=== PATIENT | female | born 1955 | race Caucasian/White ===

== ENCOUNTER → 2017-11-15 12:53 | Outpatient (CLI) | payer MEDICAID, SELFPAY ==
--- NOTE | 2017-11-15 11:58 | DI.REPORT_ITS ---
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 There is mild soft tissue swelling seen laterally in the foot. No soft tissue calcification or bony abnormality is seen. There are no significant degenerative changes. IMPRESSION: Heel spur and lateral soft tissue swelling.
== END ==
PROVIDERS: PCP Family Medicine; Visit Provider Nurse Practitioner
DX: M77.32 Calcaneal spur, left foot (principal); R22.42 Localized swelling, mass and lump, left lower limb; D48.7 Neoplasm of uncertain behavior of other specified sites
CPT/HCPCS: 73630

== ENCOUNTER 2018-04-12 11:55 | Day surgery (SDC) | payer MEDICAID, SELFPAY ==
[2018-04-12] MEDS: Lactated Ringers 1,000 ML 75 ML IV (12:56)
[2018-04-12] MEDS: Bupivacaine LIPOSOME/PF 133 MG/10 ML VIAL IJ (14:45)
--- NOTE | 2018-04-12 15:01 | HEM_PTH ---
PATIENT: Lexii Drake LOC: [facility] U#:[id number] AGE/SX: 63/F ROOM: RE04/12/[address]: Chaparro Clancy III : 1955 BED: DIS: 04/12/2018 SPEC #: [id number] RECD: 04/12/18 17:38 STATUS: YUNG REQ #: [id number] ALAINA: 04/12/18 15:[address]: Chaparro Clancy III DEPT: Surgical Specimen RECD BY: Mildred Rivera ENTERED: 04/12/18 17:40 SP TYPE: Hem OTHR DR: Edi Sullivan MD Tissues: 1 - HEMORRHOIDS 2 - HEMORRHOIDS 3 - HEMORRHOIDS 4 - HEMORRHOIDS Procedures: GROSS AND MICRO LEVEL 3 Comments: [id number]
[2018-04-12] MEDS: Cellulose,Oxidized 2X3 PKT 1 EACH MC (15:24)
--- NOTE | 2018-04-12 15:29 | W.PM.OP ---
Date of service: 04/12/18 Time of Service: 15:30 Operative Note DATE OF PROCEDURE: 04/12/18 PRE-OP DIAGNOSIS: thrombosed and external hemorrhoids POST-OP DIAGNOSIS: same PROCEDURE: hemroidectomy ANESTHESIA: local and spinal ESTIMATED BLOOD LOSS: 10 PATHOLOGY: other COMPLICATIONS: None Patient was transported to: PACU Patient's condition: stable Indications: thromboses and external hemorrhoids, severe pain inability to sit or ambulate Findings: 4 large hemorrhoids were found 2, 5, 7, 9 oclock position Procedure Description: the spinal was done, pt positioned in the lithotomy position, timeout done local injected marcain with epi and exparel the largest at the 9 oclock position excised with ligasure when disecting the base clot was encountered consistant with a thrombosed hemorrhoid. the second at the 5 oclock position was removed with a ligasure in a similar fashion. a 2 oclock smaller hemorrhoid was removed with the ligasure. The finasl one at the 9 oclock position was exsised at the base with the ligasure. The largest one in the 9 oclock position had the mucosa approximated with a running chromic stich. Two pieces of surgicel with vasaline gauze was insertes to the rectum with it sticking out as a dressing. pt travis well debreifing done. pt moved to pacu then home after recovery from anesthesia.
[2018-04-12 16:05] VITALS: BP 154/105; PULSE 94; RESP 16; TEMP 36.7; O2SAT 95
== END 2018-04-12 17:31 | disposition home or self-care (01) ==
PROVIDERS: PCP Family Medicine; Visit Provider Surgery
PROC: (CPT 46320; principal; 2018-04-12 14:00)
DX: K64.5 Perianal venous thrombosis (principal); K62.89 Other specified diseases of anus and rectum
CPT/HCPCS: 46320 ×2; 88304; 93005; 93010; J2250

== ENCOUNTER 2019-07-15 10:54 | Outpatient (CLI) | payer MEDICAID, SELFPAY ==
[2019-07-19 04:35] LABS: SARS-CoV-2 RNA Undetected (Undetected); SARS-CoV-2 Specimen Source Nasal
== END 2019-07-15 11:14 ==
PROVIDERS: PCP Family Medicine; Visit Provider Family Medicine
DX: Z20.828 Contact with and (suspected) exposure to other viral communicable diseases (principal)
CPT/HCPCS: 87449; U0003

== ENCOUNTER 2019-09-17 02:49 | Outpatient (CLI) | payer MEDICAID, SELFPAY ==
[2019-09-17 08:42] LABS: Anion Gap 6.4 mmol/L (3-11); BUN 12 mg/dL (7-18); CO2 27.6 mmol/L (21.0-32.0); CREATININE 1.04 mg/dL (0.55-1.02); Calculated LDL 66 mg/dL (<100); Chloride 107 mmol/L (98-107); Cholesterol 154 mg/dL (<200); Estimated GFR 53.35 (mL/min/1.73m2); Glucose 103 mg/dL (74-106); HDL Cholesterol 65 mg/dL (40-60); Potassium 4.6 mmol/L (3.5-5.1); Sodium 141 mmol/L (136-145); Triglyceride 118 mg/dL (<150)
== END 2019-09-17 03:09 ==
PROVIDERS: PCP Nurse Practitioner Family; Visit Provider Family Medicine
DX: I25.10 Atherosclerotic heart disease of native coronary artery without angina pectoris (principal)
CPT/HCPCS: 36415; 80048; 80061

== ENCOUNTER 2020-02-16 10:53 | Outpatient (REF) | payer MEDICAID, SELFPAY ==
--- NOTE | 2020-02-16 10:15 | PAPFT_PTH ---
PATIENT: Lexii Drake LOC: [facility] U#:[id number] AGE/SX: 65/F ROOM: RE02/16/[address]: MAGGIE Holland : 1955 BED: DIS: 02/16/2020 SPEC #: [id number] RECD: 02/16/20 12:47 STATUS: YUNG REQ #: [id number] ALAINA: 02/16/20 10:[address]: Dora Muse DEPT: [facility] Cytology RECD BY: Yue Neil ENTERED: 02/16/20 12:48 SP TYPE: PAPFT OTHR DR: MAGGIE Wagner Tissues: 1 - CX/ENDOCX FOR PAP SMEARS Procedures: PAP THIN PREP/UVM Screening HPV DNA PROBE Comments: [id number] ([facility])
== END 2020-02-16 11:13 ==
LOC: LBN 10:53
PROVIDERS: PCP Nurse Practitioner Family; Visit Provider Nurse Practitioner Family
DX: Z12.4 Encounter for screening for malignant neoplasm of cervix (principal)
CPT/HCPCS: 88142; 87624

== ENCOUNTER 2020-02-24 00:39 | Outpatient (CLI) | payer MEDICAID, SELFPAY ==
--- NOTE | 2020-02-24 10:10 | DI.MAMMO_ITS ---
EXAM: MG MAMMO SCREENING CLINICAL HISTORY: screening TECHNIQUE: Bilateral full field digital CC and MLO mammographic images were obtained with 3D tomosyn thesis and utilizing computer aided detection (CAD). COMPARISON: Available for comparison. FINDINGS: Masses/Architectural Distortion: None seen. There is a stable calcified fibroadenoma in the upper-out er quadrant of the right breast. Microcalcifications: No suspicious pleomorphic-type are seen. Skin Thickening/Nipple Retraction: None. IMPRESSION: 1. No significant interval change with no specific features of malignancy noted. 2. Unless there is more urgent need, screening mammography is recommended, as per [employer] guidelines. BI-RADS Category 2 - Benign Findings Breast Density - Category C - Heterogeneously dense The mammogram demonstrates the patient's breast tissue is dense. Dense breast tissue is very common a nd is not abnormal but dense breast tissue can make it harder to find cancer on a mammogram. Also, de nse breast tissue may increase their breast cancer risk. This information about the result of the [facility] mogram report was provided to the patient to raise their awareness. Use this report when you speak wi th the patient about their risks for breast cancer, which includes their family history. At that time , you may recommend for more screening tests (Ultrasound or MRI) as they might be useful based on the ir risk. A negative radiographic report should not delay biopsy if a dominant or clinically suspicious mass is present. Up to ten percent of cancers are not identified on mammography. A negative report may reinforce clinical impression. Adenosis and dense breasts may obscure an underlying neoplasm. False positive reports average 6 to 10%. Patient will receive a letter notifying them of these results.
== END 2020-02-24 00:59 ==
PROVIDERS: PCP Nurse Practitioner Family; Visit Provider Nurse Practitioner Family
DX: Z12.31 Encounter for screening mammogram for malignant neoplasm of breast (principal); D24.1 Benign neoplasm of right breast
CPT/HCPCS: 77063; 77067

== ENCOUNTER 2020-09-23 01:44 | Outpatient (CLI) | payer MEDICARE, MEDICAID, SELFPAY ==
--- NOTE | 2020-09-23 08:10 | DI.RAD_ITS ---
Exam(s) XR KNEE RT 3V AP,LAT,CLARITZA EXAM: XR KNEE RT 3V AP,LAT,CLARITZA CLINICAL HISTORY: bilateral knee pain,M25.561,M25.562. TECHNIQUE: 2D digital imaging was performed. COMPARISON: No exams were available for comparison FINDINGS: BONES: No acute fracture is present. No bony destructive lesion is seen. JOINTS: The knee is normally aligned. No joint effusion is seen. There is moderate narrowing of the m edial femoral tibial joint space and periarticular spurring. Mild spurring is seen at the patellofem oral joint. SOFT TISSUE: Normal. IMPRESSION: Moderate degenerative changes of the medial femoral tibial joint. DATA REPOSITORY: RADIATION DOSE DELIVERED:
--- NOTE | 2020-09-23 08:10 | DI.RAD_ITS ---
Exam(s) XR KNEE LT 3V AP,LAT,CLARITZA EXAM: XR KNEE LT 3V AP,LAT,CLARITZA CLINICAL HISTORY: bilateral knee pain,M25.561,M25.562. TECHNIQUE: 2D digital imaging was performed. COMPARISON: CR XR KNEE RT 3V AP,LAT,CLARITZA from 09/23/2020 FINDINGS: BONES: No acute fracture is present. No bony destructive lesion is seen. JOINTS: The knee is normally aligned. No joint effusion is seen. There is mild spurring at the media l femoral tibial joint and patellofemoral joint. SOFT TISSUE: Normal. IMPRESSION: Mild degenerative changes. DATA REPOSITORY: RADIATION DOSE DELIVERED:
== END 2020-09-23 02:04 ==
PROVIDERS: PCP Nurse Practitioner Family; Visit Provider Nurse Practitioner Family
DX: M25.561 Pain in right knee (principal); M25.562 Pain in left knee; M25.861 Other specified joint disorders, right knee; M25.862 Other specified joint disorders, left knee
CPT/HCPCS: 73562

== ENCOUNTER 2021-02-10 01:16 | Outpatient (CLI) | payer MEDICARE, MEDICAID, SELFPAY ==
--- NOTE | 2021-02-10 07:30 | DI.CT_ITS ---
Exam(s) CT NECK W EXAM: CT NECK W CLINICAL HISTORY: eval right sided LAT neck mass.R22.1. TECHNIQUE: Imaging Protocol: Axial CT angiography was performed with multi-slice acquisition and mu lti-planar and/or 3D reconstructions. CONTRAST MATERIAL: Intravenous: Omnipaque 350 Contrast volume:100 mL COMPARISON: No exams were available for comparison FINDINGS: Nasopharynx: Unremarkable. No mass. Oropharynx: Unremarkable. Uvula is midline. No mass seen. Hypopharynx: Unremarkable. No mass seen Aryepiglottic folds and region of vocal cords appear unremarkable. The subglottic airway appears unremarkable. Thyroid gland: Not enlarged. No nodules evident. Parotid glands: Unremarkable. Masses nor calculi. Submandibular glands: Unremarkable. No masses. No calculi. Lymph nodes: There are no abnormal enlarged lymph nodes in either side of the neck. Also no supracla vicular adenopathy. Vascular: No evidence of significant atherosclerotic narrowing at the right carotid bifurcation and i nternal carotid artery. On the left side there is mild plaque evident on the posterior wall of the c arotid bifurcations and proximal internal carotid artery but without significant stenosis. Visualized lung apices: Unremarkable Visualized paranasal sinuses: Unremarkable Osseous: Multilevel chronic degenerative disc disease. No significant osseous lesions. IMPRESSION: 1. No evidence of abnormal mass or lymphadenopathy in the neck. RADIATION DOSE DELIVERED: 363.37mGy.cm Total DLP DATA REPOSITORY: All CT scans at this facility are submitted to the National Radiology Data Registry (NRDR) Dose Index Registry (DIR) with the [employer] (A[employer]). RADIATION OPTIMIZATION: All CT scans at this facility use at least one of these dose optimization te chniques: automated exposure control; mA and/or kV adjustment per patient size (includes targeted exa ms where dose is matched to clinical indication); or iterative reconstruction.
[2021-02-10 10:16] LABS: ALT 25 U/L (14-59); AST 17 U/L (15-37); Albumin 3.9 g/dL (3.4-5.0); Alkaline Phosphatase 62 U/L (46-116); Anion Gap 5.3 mmol/L (3-11); BUN 13 mg/dL (7-18); Bilirubin, Total 1.4 mg/dL (0.2-1.0); CO2 28.7 mmol/L (21.0-32.0); CREATININE 0.9 mg/dL (0.55-1.02); Calculated LDL 62 mg/dL (<100); Chloride 106 mmol/L (98-107); Cholesterol 164 mg/dL (<200); Glucose 96 mg/dL (74-106); HDL Cholesterol 84 mg/dL (40-60); Potassium 4.8 mmol/L (3.5-5.1); Sodium 140 mmol/L (136-145); Total Protein 6.9 g/dL (6.4-8.2); Triglyceride 91 mg/dL (<150)
[2021-02-10] MEDS: Omnipaque 350 MG/ML 100 ML BTL IJ (10:31)
[2021-02-10] MEDS: Normal Saline - Diluent 50 ML VIAL IV (10:32)
== END 2021-02-10 01:36 ==
PROVIDERS: PCP Nurse Practitioner Family; Visit Provider Family Medicine
DX: R22.1 Localized swelling, mass and lump, neck
CPT/HCPCS: 70491; 80053; 80061; 83036; J3490

== ENCOUNTER 2021-02-24 01:11 | Outpatient (CLI) | payer MEDICARE, MEDICAID, SELFPAY ==
--- NOTE | 2021-02-24 08:15 | DI.MAMMO_ITS ---
Exam(s) MAMMO SCREENING EXAM: MAMMO SCREENING CLINICAL HISTORY: screening,Z12.39 TECHNIQUE: Mammograms were interpreted according to the usual protocol including computer analysis w [employer] CAD system, tomosynthesis and C-view imaging. COMPARISON: 2012 through 2019 FINDINGS: The breasts are composed of heterogeneously dense fibroglandular densities, Breast Density category C . No suspicious masses or suspicious microcalcifications are seen. Stable bilateral presumed fibroaden omas. No skin thickening or abnormal axillary lymph nodes are seen. There has been no significant change from prior exams. IMPRESSION: BI-RADS Cat 2 - Benign Findings Yearly screening mammography is recommended. Breast Density Category C, heterogeneously Dense. The mammogram demonstrates the patient's breast tissue is dense. Dense breast tissue is very common a nd is not abnormal but dense breast tissue can make it harder to find cancer on a mammogram. Also, de nse breast tissue may increase breast cancer risk. This information about the result of the mammogram report was provided to the patient to raise their awareness. Use this report when you speak with the patient about their risks for breast cancer, which includes their family history. At that time, you may recommend additional screening tests (Ultrasound or MRI) as they might be useful based on their r isk. A negative radiographic report should not delay biopsy if a dominant or clinically suspicious mass is present. Up to ten percent of cancers are not identified on mammography. A negative report may reinforce clinical impression. Adenosis and dense breasts may obscure an underlying neoplasm. False positive reports average 6 to 10%.
--- NOTE | 2021-02-24 15:00 | DI.DEXA_ITS ---
Exam(s) XR DEXA BONE DENSITY W/WO JT EXAM: XR DEXA BONE DENSITY W/WO JT CLINICAL HISTORY: Osteoporosis screening,IN POSTMENOPAUSAL WOMAN, Z78.0 TECHNIQUE: [employer] C densitometer COMPARISON: No exams were available for comparison FINDINGS: Lateral view of the thoracic and lumbar spine shows no evidence of compression fractures. Bone mineral density measurements of the lumbar spine correspond to a total T-score of -0.9, in the normal range. Bone mineral density measurements of the left hip correspond to a total T-score of -0.7. The femora l neck T-score is -0.7, in the normal range.. The left forearm bone mineral density measurements correspond to a T-score of the distal 3rd of 0.2. IMPRESSION: Normal bone mineral density.
== END 2021-02-24 01:31 ==
PROVIDERS: PCP Nurse Practitioner Family; Visit Provider Nurse Practitioner Family
DX: Z78.0 Asymptomatic menopausal state (principal); Z12.31 Encounter for screening mammogram for malignant neoplasm of breast; Z13.820 Encounter for screening for osteoporosis; R92.8 Other abnormal and inconclusive findings on diagnostic imaging of breast
CPT/HCPCS: 77063; 77067; 77080

== ENCOUNTER → 2021-09-27 01:07 | Outpatient (CLI) | payer MEDICARE, MEDICAID, SELFPAY ==
--- NOTE | 2021-09-27 06:45 | DI.NM_ITS ---
APPROVED REPORT Exam: Exercise Treadmill Patient Location: Out-Patient Room/Bed: Stress Nurse: Shon Garcia RN Ordering Provider:HOA DIAZ, Contact Number: [phone] BMI: 26.62 Baseline Rhythm: Sinus Rhythm Comment: flipped P wave aVR + V1 Indications: dyspnea on exertion Medical History Medical History: CAD, preDM, HTN, HLD, MAHNAZ Cardiac Medications: Losartan, atorvastatin, ASA, SL Nitro Allergies: sertraline, hydrocodone, shellfish, insect venom, thallium, oxycodone Cardiac Risk Factors: family Hx, HTn, HLD, CVD, Diabetes Previous Cardiac Procedures: Stress test 2007 and 2016, PCI to LAD 2008 Pretest Chest Pain Characteristics: none Exercise History: Sedentary Physical Disabilities: none Lung Sounds: Clear to auscultation Heart Sounds: Regular Stress Test Details Test: Exercise stress testing was performed using a Liang protocol. Nuclear Acquisition: Rest Tc-99m/Stress Tc-99m 1 day Rest Isotope: Tc-99m Sestamibi. Dose: 10 Date: 09/27/2021 Injection Time: 0930 Stress Isotope: Tc-99m Sestamibi. Dose: 32.5 Date: 09/27/2021 Injection Time: 1108 HR Resting HR Supine: 49 bpm Max Heart Rate (APMHR): 154.857223 bpm Resting HR Standin bpm Target HR (85% APMHR): 130.904194 bpm Max HR Achieved: 156 bpm % of APMHR: 101.30 Recovery HR: 90 bpm HR response to stress: Normal HR response to stress BP Resting BP Supine: 154/80 mmHg Resting BP Standin/80 mmHg Max BP: 218/90 mmHg Recovery BP: 150/76 mmHg BP response to stress: Normal blood pressure response to stress. ECG Resting ECG: Sinus Rhythm, Sinus Arrhythmia Comment: flipped P wave aVR + V1 Stress ECG: Sinus Rhythm, Sinus Tachycardia ST Change: No significant ST segment changes noted Arrhythmia: VPC's Recovery ECG: Sinus Rhythm, Sinus Tachycardia, Sinus Arrhythmia Recovery ST Change: No significant ST segment changes noted Recovery Arrhythmia: VPC Clinical Reason for Termination: Fatigue Stress Symptoms: Dyspnea Exercise duration: 7 min27 sec Highest Stage Reached: Stage 3: 3.4 mph at 14% grade. Exercise capacity: 9.26 METs Angina Score: Non-Limiting William Treadmill Score: 2.5 Rate Pressure Product: 32605 Stress ECG Conclusion 1. Resting electrocardiogram showed poor R wave progression 2. Patient exercised on the Liang protocol and completed a workload of 9.26 METS, limited by shortnes s of breath 3. Normal heart rate and blood pressure response to exercise. The patient achieved greater than 100% of predicted heart rate for age 4. The electrocardiographic portion of the test was negative for myocardial ischemia 5. Rare PVCs were seen William Treadmill Score is 2.5 which is Moderate risk. Stress Test Summary STAGE Time (mins) Speed (mph) Grade (%) HR BP SYMPTOMS METS Supine 49 154/80 Standing 62 148/80 1 3 1.7 10 108 192/90 95% 4.6 2 6 2.5 12 136 194/90 95%, mild Dyspnea, lightheaded 7 1 min recovery 129 218/90 98%, lightheadedness resolved 3 min recovery 101 190/92 98%, SOB resolved 6 min recovery 90 150/76 98% Pt reported lightheadedness at 0721 exercise time, increased ventricular ectopy noted with wide multi focal PVC's. Exercise stopped at 0727 exercise time. PVCs continued with increased frequency, stopped when lightheadedness resolved around recovery time 0030. MPI Conclusion Normal myocardial perfusion without evidence of ischemia or prior infarction EF is 76%, wall motion is normal Radiologist Interpretation Radiologist agrees with Flexo Operator's Interpretation. Radiologist Interpretation by: John Lantigua MD Interpretation Date/Time: 09/29/2021 08:14:03
== END ==
PROVIDERS: PCP Nurse Practitioner Family; Visit Provider Family Medicine
DX: I25.10 Atherosclerotic heart disease of native coronary artery without angina pectoris (principal)
CPT/HCPCS: 78452; 93016; 93018; 93017

== ENCOUNTER → 2021-12-16 01:02 | Outpatient (CLI) | payer MEDICARE, MEDICAID, SELFPAY ==
--- NOTE | 2021-12-16 07:45 | DI.RAD_ITS ---
Exam(s) XR CHEST 2V PA LATERAL EXAM: XR CHEST 2V PA LATERAL CLINICAL HISTORY: Cough x 3 weeks, R05.9 TECHNIQUE: 2D digital imaging was performed. COMPARISON: CR CHEST 2 VIEWS PA,LAT from 07/02/2013 FINDINGS: The heart is not enlarged. The lungs are clear and well expanded. No pleural effusion seen. Mediastin al contours appear intact. IMPRESSION: Normal chest. RADIATION DOSE DELIVERED: Total DLP
== END ==
PROVIDERS: PCP Nurse Practitioner Family; Visit Provider Nurse Practitioner Family
DX: R05.8 Other specified cough (principal)
CPT/HCPCS: 71046

== ENCOUNTER → 2022-02-28 02:54 | Outpatient (CLI) | payer MEDICARE, MEDICAID, SELFPAY ==
--- NOTE | 2022-02-28 06:45 | DI.MAMMO_ITS ---
Exam(s) MAMMO SCREENING EXAM: MAMMO SCREENING CLINICAL HISTORY: screening,z12.39. TECHNIQUE: Bilateral full field digital CC and MLO mammographic images were obtained with 3D tomosyn thesis and utilizing computer aided detection (CAD). COMPARISON: Prior mammograms were reviewed. FINDINGS: There has been no significant change in the appearance and distribution of the fibroglandular tissue Previously present calcified and noncalcified nodules in the right breast again remain stable. There are no new significant nodules in either breast. There are no new spiculated masses nor malignant appearing microcalcification groups. There is no significant architectural distortion nor skin thickening-retraction. IMPRESSION: Stable benign-appearing findings. No radiographic evidence of malignancy. BI-RADS Category 2 - Benign Findings Breast Density - Category B - Scattered areas of fibroglandular density Breast density Category C or D implies that the patient has dense breast tissue. Dense breast tissue can make it harder to find cancer on a mammogram. Dense breast tissue is also associated with an incr eased risk of breast cancer. This information about the result of the mammogram report was provided to the patient to raise their awareness. Use this report when you speak with the patient about their risks for breast cancer, which includes their family history. At that time, you may recommend additional screening tests (Ultrasoun d or MRI) as these tests may add significant information. A negative radiographic report should not delay biopsy if a dominant or clinically suspicious mass is present. Up to ten percent of cancers are not identified on mammography. A negative report may reinforce clinical impression. Adenosis and dense breasts may obscure an underlying neoplasm. False positive reports average 6 to 10%. Patient will receive a letter notifying them of these results.
== END ==
PROVIDERS: PCP Nurse Practitioner Family; Visit Provider Family Medicine
DX: Z12.31 Encounter for screening mammogram for malignant neoplasm of breast (principal)
CPT/HCPCS: 77063; 77067

== ENCOUNTER 2022-09-18 15:28 | Outpatient (REF) | payer MEDICARE, SELFPAY ==
[2022-09-19 14:13] LABS: Chlamydia Result Negative (Negative); GC Result Negative (Negative)
== END 2022-09-18 15:29 | disposition home or self-care (01) ==
LOC: LBN 15:28
PROVIDERS: PCP Nurse Practitioner Family; Visit Provider Nurse Practitioner Family
DX: Z11.3 Encounter for screening for infections with a predominantly sexual mode of transmission (principal)
CPT/HCPCS: 87491; 87591

== ENCOUNTER 2022-11-15 03:46 | Outpatient (CLI) | payer MEDICARE, SELFPAY ==
[2022-11-15 11:14] LABS: Anion Gap 10.6 mmol/L (3-11); BUN 16 mg/dL (7-18); CO2 25.4 mmol/L (21.0-32.0); CREATININE 0.9 mg/dL (0.55-1.02); Calculated LDL 73 mg/dL (<100); Chloride 105 mmol/L (98-107); Cholesterol 165 mg/dL (<200); Estimated GFR 70.07 (mL/min/1.73m2); Glucose 112 mg/dL (74-106); HDL Cholesterol 75 mg/dL (40-60); Potassium 4.4 mmol/L (3.5-5.1); Sodium 141 mmol/L (136-145); TSH (W/Ref FT4) 1.97 uIU/mL (0.36-3.74); Triglyceride 88 mg/dL (<150)
[2022-11-16 10:12] LABS: HIV-1/2 Ag & Ab Screen Negative (Negative)
[2022-11-16 10:16] LABS: Hepatitis C Ab w Rflx HCV PCR Negative (Negative)
[2022-11-16 11:23] LABS: Syphilis Serology (RPR) Negative (Negative)
== END 2022-11-15 03:47 | disposition home or self-care (01) ==
LOC: LOS 03:47
PROVIDERS: PCP Nurse Practitioner Family; Visit Provider Nurse Practitioner Family
DX: E78.5 Hyperlipidemia, unspecified (principal); Z00.00 Encounter for general adult medical examination without abnormal findings; Z11.3 Encounter for screening for infections with a predominantly sexual mode of transmission; R73.03 Prediabetes
CPT/HCPCS: 36415; 80048; 80061; 86803; 87389; 83036; 84443; 86592

== ENCOUNTER 2023-02-01 02:22 | Outpatient (CLI) | payer MEDICARE, SELFPAY ==
--- NOTE | 2023-02-01 06:45 | DI.RAD_ITS ---
Exam(s) XR KNEE LT 3V AP,LAT,CLARITZA EXAM: XR KNEE LT 3V AP,LAT,CLARITZA CLINICAL HISTORY: knee arthritis,M17.0,BILAT. TECHNIQUE: 2D digital imaging was performed of the left knee. Three images were obtained. AP, late ral and PA tunnel views were obtained. COMPARISON: CR XR KNEE LT 3V AP,LAT,CLARITZA from 09/23/2020 FINDINGS: BONES: No acute fracture is present. No bony destructive lesion is seen. JOINTS: Small osteophytes are seen at the posterior patella. There is mild narrowing of the femoral tibial joint. No joint effusion is seen. No loose body. SOFT TISSUE: Normal. IMPRESSION: Stable mild degenerative changes of the left knee. DATA REPOSITORY: RADIATION DOSE DELIVERED:
--- NOTE | 2023-02-01 06:45 | DI.RAD_ITS ---
Exam(s) XR KNEE RT 3V AP,LAT,CLARITZA EXAM: XR KNEE RT 3V AP,LAT,CLARITZA CLINICAL HISTORY: knee arthritis,BILAT, M17.0. TECHNIQUE: 2D digital imaging was performed of the right knee. Three views obtained. AP, lateral an d PA tunnel views were obtained. COMPARISON: CR XR KNEE RT 3V AP,LAT,CLARITZA from 09/23/2020 FINDINGS: BONES: No acute fracture is present. No bony destructive lesion is seen. There is an enthesophyte at the superior patella. JOINTS: The knee is normally aligned. There is moderate narrowing of the medial femoral tibial joint. Osteophytes are seen in all 3 joint compartments. There is a small joint effusion. SOFT TISSUE: Normal. IMPRESSION: Stable moderate degenerative changes of the right knee. DATA REPOSITORY: RADIATION DOSE DELIVERED:
== END 2023-02-01 02:42 ==
LOC: DI 02:22
PROVIDERS: PCP Nurse Practitioner Family; Visit Provider Nurse Practitioner Family
DX: M17.0 Bilateral primary osteoarthritis of knee (principal)
CPT/HCPCS: 73562

== ENCOUNTER → 2023-03-02 01:09 | Outpatient (CLI) | payer MEDICARE, SELFPAY ==
--- NOTE | 2023-03-02 07:15 | DI.MAMMO_ITS ---
Exam(s) MAMMO SCREENING EXAM: MAMMO SCREENING CLINICAL HISTORY: screening,z12.39. TECHNIQUE: Bilateral full field digital CC and MLO mammographic images were obtained with 3D tomosyn thesis and utilizing computer aided detection (CAD). COMPARISON: Prior mammograms were reviewed. FINDINGS: There has been no significant change in the appearance and distribution of the fibroglandular tissue. Both partially calcified and noncalcified nodular densities in both breasts again remain stable. There are no new spiculated masses nor malignant appearing microcalcification groups. There is no new significant architectural distortion nor skin thickening-retraction. IMPRESSION: Stable benign-appearing findings. No radiographic evidence of malignancy. BI-RADS Category 2 - Benign Findings Breast Density - Category B - Scattered areas of fibroglandular density Breast density Category C or D implies that the patient has dense breast tissue. Dense breast tissue can make it harder to find cancer on a mammogram. Dense breast tissue is also associated with an incr eased risk of breast cancer. This information about the result of the mammogram report was provided to the patient to raise their awareness. Use this report when you speak with the patient about their risks for breast cancer, which includes their family history. At that time, you may recommend additional screening tests (Ultrasoun d or MRI) as these tests may add significant information. A negative radiographic report should not delay biopsy if a dominant or clinically suspicious mass is present. Up to ten percent of cancers are not identified on mammography. A negative report may reinforce clinical impression. Adenosis and dense breasts may obscure an underlying neoplasm. False positive reports average 6 to 10%. Patient will receive a letter notifying them of these results.
== END ==
PROVIDERS: PCP Nurse Practitioner Family; Visit Provider Nurse Practitioner Family
DX: Z12.31 Encounter for screening mammogram for malignant neoplasm of breast (principal)
CPT/HCPCS: 77063; 77067

== ENCOUNTER → 2023-03-26 08:04 | Outpatient (BNVA) | payer MEDICARE, SELFPAY | PROVIDERS: PCP Nurse Practitioner Family; Referring Provider Nurse Practitioner Family; Visit Provider Student in an Organized Health Care Education/Training Program | DX: M17.11 Unilateral primary osteoarthritis, right knee (principal); M17.12 Unilateral primary osteoarthritis, left knee | CPT/HCPCS: 99203 ==

== ENCOUNTER 2023-12-04 01:27 | Outpatient (CLI) | payer MEDICARE, OTHER, SELFPAY | END 2023-12-04 01:47 | LOC: DI 01:28 | PROVIDERS: PCP Nurse Practitioner Family; Visit Provider Nurse Practitioner Family | DX: I34.1 Nonrheumatic mitral (valve) prolapse (principal) | CPT/HCPCS: 93306 ==

== ENCOUNTER 2024-03-03 01:14 | Outpatient (CLI) | payer MEDICARE, OTHER, SELFPAY ==
--- NOTE | 2024-03-03 06:30 | DI.MAMMO_ITS ---
Exam(s) MAMMO SCREENING EXAM: MAMMO SCREENING CLINICAL HISTORY: screening,Z12.39. TECHNIQUE: Bilateral full field digital CC and MLO mammographic images were obtained with 3D tomosyn thesis and utilizing computer aided detection (CAD). COMPARISON: Prior mammograms were reviewed. FINDINGS: There has been no significant change in the appearance and distribution of the fibroglandular tissue. Benign-appearing partially calcified nodules in both breasts are again noted which are probably degen erative fibroadenomas. There are no new spiculated masses nor new malignant appearing microcalcification groups. There is no significant architectural distortion nor skin thickening-retraction. IMPRESSION: Stable benign-appearing findings. No radiographic evidence of malignancy. BI-RADS Category 2 - Benign Findings Breast Density - Category B - Scattered areas of fibroglandular density Breast density Category C or D implies that the patient has dense breast tissue. Dense breast tissue can make it harder to find cancer on a mammogram. Dense breast tissue is also associated with an incr eased risk of breast cancer. This information about the result of the mammogram report was provided to the patient to raise their awareness. Use this report when you speak with the patient about their risks for breast cancer, which includes their family history. At that time, you may recommend additional screening tests (Ultrasoun d or MRI) as these tests may add significant information. A negative radiographic report should not delay biopsy if a dominant or clinically suspicious mass is present. Up to ten percent of cancers are not identified on mammography. A negative report may reinforce clinical impression. Adenosis and dense breasts may obscure an underlying neoplasm. False positive reports average 6 to 10%. Patient will receive a letter notifying them of these results.
== END 2024-03-03 01:34 ==
LOC: DI 01:14
PROVIDERS: PCP Nurse Practitioner Family; Visit Provider Nurse Practitioner Family
DX: Z12.31 Encounter for screening mammogram for malignant neoplasm of breast (principal); R92.323 Mammographic fibroglandular density, bilateral breasts; D24.1 Benign neoplasm of right breast; D24.2 Benign neoplasm of left breast
CPT/HCPCS: 77063; 77067

== ENCOUNTER 2024-11-27 03:51 | Outpatient (CLI) | payer MEDICARE, OTHER, SELFPAY ==
[2024-11-27 12:36] LABS: Chloride 105 mmol/L (98-107); Potassium 4.1 mmol/L (3.5-5.1); Sodium 142 mmol/L (136-145)
[2024-11-27 13:34] LABS: Anion Gap 10.3 mmol/L (3-11); BUN 13 mg/dL (7-18); CO2 26.7 mmol/L (21.0-32.0); Calcium 9.0 mg/dL (8.5-10.1); Calculated LDL 62 mg/dL (<100); Cholesterol 152 mg/dL (<200); Estimated GFR 69.20 (mL/min/1.73m2); Glucose 90 mg/dL (74-106); HDL Cholesterol 63 mg/dL (>or=50); Triglyceride 137 mg/dL (<150)
[2024-11-27 13:59] LABS: Hemoglobin A1C 6.0 % (<5.7)
== END 2024-11-27 03:52 | disposition home or self-care (01) ==
LOC: LBO 03:51
PROVIDERS: PCP Nurse Practitioner Family; Visit Provider Nurse Practitioner Family
DX: R73.03 Prediabetes (principal); I25.10 Atherosclerotic heart disease of native coronary artery without angina pectoris; I10 Essential (primary) hypertension
CPT/HCPCS: 36415; 80048; 80061; 83036

== ENCOUNTER 2024-12-19 11:45 | Outpatient (CLI) | payer MEDICARE, OTHER, SELFPAY ==
--- NOTE | 2024-12-19 11:01 | DI.RAD_ITS ---
Exam(s) XR KNEE RT 3V AP,LAT,CLARITZA XR KNEES MERCHANT ONLY XR KNEE LT 3V AP,LAT,CLARITZA EXAM: XR KNEE RT 3V AP,LAT,CLARITZA and XR knee LT 3 V and XR knees Merchant CLINICAL HISTORY: knee pain. TECHNIQUE: 2D digital imaging was performed of the left and right knee. Seven views obtained. Merchant, AP, lateral and PA tunnel views were obtained. COMPARISON: CR XR KNEE LT 3V AP,LAT,CLARITZA from 02/01/2023 CR XR KNEE RT 3V AP,LAT,CLARITZA from 02/01/2023 FINDINGS: BONES: No acute fracture is present. No bony destructive lesion is seen. There is an enthesophyte at the anterior right patella. JOINTS: In the right knee there is moderate narrowing of the medial femoral tibial joint. There osteophytes in all 3 joint compartments. There is a small joint effusion. In the left knee, small osteophytes are seen in the medial femoral tibial and patellofemoral joint. There may be a small joint effusion. No joint effusion is seen. SOFT TISSUE: Normal. IMPRESSION: Osteoarthritis of the knees, right greater than left. DATA REPOSITORY: RADIATION DOSE DELIVERED:
== END 2024-12-19 11:46 | disposition home or self-care (01) ==
LOC: DIORS 12-22 10:03
PROVIDERS: PCP Nurse Practitioner Family; Referring Provider Nurse Practitioner Family; Visit Provider Physician Assistant
DX: M25.561 Pain in right knee (principal); M17.0 Bilateral primary osteoarthritis of knee; M25.562 Pain in left knee
CPT/HCPCS: 99213; 20610; 73562; 73565; J1010

== ENCOUNTER → 2025-03-04 02:04 | Outpatient (CLI) | payer MEDICARE, OTHER, SELFPAY ==
--- NOTE | 2025-03-04 06:45 | DI.MAMMO_ITS ---
Exam(s) MAMMO SCREENING EXAM: MAMMO SCREENING CLINICAL HISTORY: screening,z12.39. TECHNIQUE: Bilateral full field digital CC and MLO mammographic images were obtained with 3D tomosynthesis and utilizing computer aided detection (CAD). COMPARISON: Prior mammograms were reviewed. FINDINGS: There has been no significant change in the appearance and distribution of the fibroglandular tissue. 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 There are no new spiculated masses nor new malignant appearing microcalcification groups. There is no significant architectural distortion nor skin thickening-retraction. IMPRESSION: Stable benign findings. No radiographic evidence of malignancy. BI-RADS Category 2 - Benign Findings Breast Density - Category B - There are scattered areas of fibroglandular density. Breast density Category C or D implies that the patient has dense breast tissue. Dense breast tissue can make it harder to find cancer on a mammogram. Dense breast tissue is also associated with an increased risk of breast cancer. This information about the result of the mammogram report was provided to the patient to raise their awareness. Use this report when you speak with the patient about their risks for breast cancer, which includes their family history. At that time, you may recommend additional screening tests (Ultrasound or MRI) as these tests may add significant information. A negative radiographic report should not delay biopsy if a dominant or clinically suspicious mass is present. Up to ten percent of cancers are not identified on mammography. A negative report may reinforce clinical impression. Adenosis and dense breasts may obscure an underlying neoplasm. False positive reports average 6 to 10%. Patient will receive a letter notifying them of these results.
== END ==
PROVIDERS: PCP Nurse Practitioner Family; Visit Provider Nurse Practitioner Family
DX: Z12.31 Encounter for screening mammogram for malignant neoplasm of breast (principal); R92.323 Mammographic fibroglandular density, bilateral breasts
CPT/HCPCS: 77063; 77067